=== PATIENT | female | born 1960 | race Caucasian/White ===

== ENCOUNTER 2021-04-12 11:10 | Inpatient (IN) | payer BC ==
[2021-04-12] MEDS ORDERED: Dexamethasone 10 MG/ML VIAL ONE (12:17)
[2021-04-12 12:34] LABS: #Basophils 0.1 thou/uL (0.0-0.2); #Lymphocytes 0.4 thou/uL (1.20-3.40); #Monocytes 0.5 thou/uL (0.11-0.59); #Neutrophils 8.4 thou/uL (1.40-6.50); %Basophils 1.6 % (0.0-1.0); %Eosinophils 0.3 % (0.0-10.0); %Monocytes 5.4 % (0.0-10.0); %Neutrophils 88.8 % (42.0-75.0); Hemoglobin 13.6 g/dL (12.0-16.0); Mean Corpuscular Hemoglobin 31.3 pg (27.0-31.0); Mean Corpuscular Volume 94.9 fL (78.0-98.0); Mean Platelet Volume 7.9 fL (7.4-10.4); Platelet Count 242 thou/uL (130-400); RBC Distribution Width 11.8 % (11.5-14.5); Red Blood Cell (RBC) Count 4.33 mill/uL (4.20-5.40); White Blood Cell (WBC) Count 9.5 thou/uL (4.8-10.8)
[2021-04-12 12:59] LABS: ALT (SGPT) 49 U/L (8-55); AST (SGOT) 60 U/L (5-34); Albumin 3.3 g/dL (3.5-5.0); Alkaline Phosphatase 43 U/L (40-110); Anion Gap 11 mmol/L (10-20); BUN (Urea Nitrogen) 21 mg/dL (9.8-20.1); Bilirubin, Total 0.5 mg/dL (0.2-1.2); Calc. Creatinine Clearance 0 mL/min (70-130); Calcium 8.9 mg/dL (7.8-10.44); Carbon Dioxide 23 mmol/L (22-29); Chloride 108 mmol/L (98-107); Glucose 115 mg/dL (70-105); Protein, Total 7.3 g/dL (6.0-8.3); Sodium 138 mmol/L (136-145)
[2021-04-12] MEDS ORDERED: Ondansetron PF 4 MG/2 ML Vial IVP PRN (14:35)
[2021-04-12] MEDS ORDERED: Ondansetron ODT 4 MG TAB PO PRN (14:35)
[2021-04-12] MEDS ORDERED: Guaifenesin DM 100-10/5 ML UDCUP PO PRN (14:35)
[2021-04-12] MEDS ORDERED: Acetaminophen 650 MG Suppository PR PRN (14:35)
[2021-04-12] MEDS ORDERED: Albuterol 200 PUFF (6.7GM INHALER) INH PRN (14:55)
[2021-04-12] MEDS ORDERED: Melatonin 3 MG TAB PO PRN (15:04)
[2021-04-12] MEDS ORDERED: Benzonatate 100 MG CAP PO PRN (15:04)
[2021-04-12 15:22] LABS: Troponin I 0.039 ng/mL (< 0.028)
[2021-04-12 18:45] LABS: Troponin I 0.044 ng/mL (< 0.028)
[2021-04-12] MEDS ORDERED: Sodium Chloride 0.9% 1,000 ML IV SCH (19:15)
[2021-04-12] MEDS ORDERED: Heparin 5,000 UNITS/ML VIAL SC SCH (19:30)
[2021-04-12] MEDS: Azithromycin 500 MG in Sodium Chloride 0.9% 250 ML 250 ML IVPB SCH (20:51)
[2021-04-12] MEDS: cefTRIAXone\\ROCEPHIN 1 GM in Sodium Chloride 0.9% 100 ML IVPB SCH (21:00)
[2021-04-12] MEDS ORDERED: REMDESIVIR 200 MG in Sodium Chloride 0.9% 250 ML 210 ML IV SCH (23:59)
[2021-04-13 06:11] LABS: #Lymphocytes 0.6 thou/uL (1.20-3.40); #Monocytes 0.5 thou/uL (0.11-0.59); %Basophils 0.1 % (0.0-1.0); %Eosinophils 0.2 % (0.0-10.0); %Lymphocytes 7.3 % (21.0-51.0); %Monocytes 5.7 % (0.0-10.0); %Neutrophils 86.8 % (42.0-75.0); Hemoglobin 13.8 g/dL (12.0-16.0); Mean Corpuscular HGB CONC 31.8 g/dL (32.0-36.0); Mean Corpuscular Hemoglobin 30.1 pg (27.0-31.0); Mean Corpuscular Volume 94.6 fL (78.0-98.0); Mean Platelet Volume 7.7 fL (7.4-10.4); Platelet Count 253 thou/uL (130-400); RBC Distribution Width 11.9 % (11.5-14.5); Red Blood Cell (RBC) Count 4.59 mill/uL (4.20-5.40); White Blood Cell (WBC) Count 8.1 thou/uL (4.8-10.8)
[2021-04-13 06:32] LABS: Anion Gap 15 mmol/L (10-20); BUN (Urea Nitrogen) 24 mg/dL (9.8-20.1); Calc. Creatinine Clearance 122 mL/min (70-130); Calcium 8.9 mg/dL (7.8-10.44); Carbon Dioxide 20 mmol/L (22-29); Chloride 110 mmol/L (98-107); Glucose 132 mg/dL (70-105); Potassium 4.4 mmol/L (3.5-5.1); Sodium 141 mmol/L (136-145)
[2021-04-13] MEDS: hydrALAZINE 20 MG/ML VIAL SLOW IVP PRN (08:38)
[2021-04-13] MEDS: Dexamethasone 10 MG/ML VIAL SLOW IVP SCH (08:39)
[2021-04-13] MEDS: Heparin 5,000 UNITS/ML VIAL SC SCH ×3 (08:39→19:51)
[2021-04-13] MEDS: REMDESIVIR 100 MG in Sodium Chloride 0.9% 250 ML 230 ML IV SCH (19:52)
[2021-04-13] MEDS: cefTRIAXone\\ROCEPHIN 1 GM in Sodium Chloride 0.9% 100 ML IVPB SCH (19:52)
[2021-04-13] MEDS: Azithromycin 500 MG in Sodium Chloride 0.9% 250 ML 250 ML IVPB SCH (21:03)
[2021-04-13] MEDS ORDERED: REMDESIVIR 100 MG in Sodium Chloride 0.9% 250 ML 230 ML IV SCH (22:00)
[2021-04-14 07:13] LABS: #Lymphocytes 0.8 thou/uL (1.20-3.40); #Monocytes 0.8 thou/uL (0.11-0.59); #Neutrophils 10.7 thou/uL (1.40-6.50); %Eosinophils 0.3 % (0.0-10.0); %Lymphocytes 6.5 % (21.0-51.0); %Monocytes 6.3 % (0.0-10.0); %Neutrophils 86.9 % (42.0-75.0); Mean Corpuscular HGB CONC 32.7 g/dL (32.0-36.0); Mean Corpuscular Hemoglobin 31.3 pg (27.0-31.0); Mean Corpuscular Volume 95.8 fL (78.0-98.0); Mean Platelet Volume 7.7 fL (7.4-10.4); Platelet Count 299 thou/uL (130-400); RBC Distribution Width 11.9 % (11.5-14.5); Red Blood Cell (RBC) Count 4.48 mill/uL (4.20-5.40); White Blood Cell (WBC) Count 12.3 thou/uL (4.8-10.8)
[2021-04-14 07:20] LABS: Anion Gap 12 mmol/L (10-20); BUN (Urea Nitrogen) 35 mg/dL (9.8-20.1); Calc. Creatinine Clearance 129 mL/min (70-130); Calcium 8.7 mg/dL (7.8-10.44); Carbon Dioxide 22 mmol/L (22-29); Chloride 112 mmol/L (98-107); Glucose 116 mg/dL (70-105); Magnesium 2.3 mg/dL (1.6-2.6); Sodium 142 mmol/L (136-145)
[2021-04-14] MEDS: FLUoxetine HCl 20 MG CAP PO SCH (08:46)
[2021-04-14] MEDS: Heparin 5,000 UNITS/ML VIAL SC SCH ×3 (08:46→21:10)
[2021-04-14] MEDS: Dexamethasone 10 MG/ML VIAL SLOW IVP SCH (08:47)
[2021-04-14] MEDS ORDERED: Melatonin 3 MG TAB PO PRN (17:05)
[2021-04-14] MEDS: hydrALAZINE 20 MG/ML VIAL SLOW IVP PRN ×2 (17:11→19:56)
[2021-04-14] MEDS: Azithromycin 500 MG in Sodium Chloride 0.9% 250 ML 250 ML IVPB SCH (20:07)
[2021-04-14] MEDS: cefTRIAXone\\ROCEPHIN 1 GM in Sodium Chloride 0.9% 100 ML IVPB SCH (21:10)
[2021-04-14] MEDS ORDERED: Lorazepam 2 MG/ML VIAL SLOW IVP SCH ×2 (21:15→23:15)
[2021-04-14 22:51] LABS: Base Excess (BEa) -2.9 mEq/L (-2.0 to +3.0); CO2 Tension 38.6 mmHg (35.0-45.0); Calcium, Ionized (arterial) 1.18 mmol/L (1.12-1.30); Hemoglobin (Hb) 15.4 g/dL (12.0-16.0); O2 Tension (PaO2), arterial 78.3 mmHg (> 80.0); Potassium - ABG Lab 3.99 mmol/L (3.70-5.30); Puncture Site RRA; pH, Arterial 7.37 (7.35-7.45)
[2021-04-14] MEDS ORDERED: Lorazepam 2 MG/ML VIAL ONE (22:58)
[2021-04-14] MEDS ORDERED: Metoprolol Tartrate 5 MG/5 ML VIAL ONE (23:03)
[2021-04-14] MEDS ORDERED: Enoxaparin Sodium 120 MG/0.8 ML SYRINGE SC SCH (23:45)
[2021-04-14] MEDS ORDERED: Enoxaparin Sodium 30 MG/0.3 ML SYRINGE SC SCH (23:45)
[2021-04-15] MEDS ORDERED: Propofol 1,000 MG/100 ML VIAL IV ONE (00:24)
[2021-04-15 00:44] LABS: Actual Bicarbonate (HCO3a) 21.4 mEq/L (22-28); Base Excess (BEa) -3.2 mEq/L (-2.0 to +3.0); CO2 Tension 37.5 mmHg (35.0-45.0); Calcium, Ionized (arterial) 1.16 mmol/L (1.12-1.30); Carboxyhemoglobin (COHb) 0.4 gm% (0.0-3.0); Hemoglobin (Hb) 15.3 g/dL (12.0-16.0); Potassium - ABG Lab 3.93 mmol/L (3.70-5.30); pH, Arterial 7.38 (7.35-7.45)
[2021-04-15] MEDS ORDERED: Electrolyte Replacement Protocol 1 EACH IVPB PRN (01:32)
[2021-04-15 01:41] LABS: O2 Tension (PaO2), arterial 55.2 mmHg (> 80.0); Puncture Site LRA
[2021-04-15 01:42] LABS: ALV-art Gradient 397.025 mmHg (0-20)
[2021-04-15] MEDS ORDERED: Lorazepam 2 MG/ML VIAL ONE (01:42)
[2021-04-15] MEDS ORDERED: Ventilator Sedation Protocol 1 EACH FS SCH (01:45)
[2021-04-15] MEDS ORDERED: Fentanyl BOLUS 250 ML IVPB PRN (02:00)
[2021-04-15] MEDS ORDERED: DISCONTINUE PREVIOUS NARCOTIC PAIN MEDICATIONS AND BENZODIAZEPINES FS SCH (02:00)
[2021-04-15] MEDS ORDERED: Propofol BOLUS 1,000 MG/100 ML VIAL IV PRN (02:00)
[2021-04-15] MEDS: Lorazepam 2 MG/ML VIAL SLOW IVP PRN (02:00)
[2021-04-15] MEDS ORDERED: Morphine 2 MG/ML VIAL SLOW IVP PRN (02:00)
[2021-04-15] MEDS ORDERED: Fentanyl CADD 100 ML ONE (02:03)
[2021-04-15] MEDS: Fentanyl CADD 100 ML IV SCH (02:07)
[2021-04-15] MEDS: REMDESIVIR 100 MG in Sodium Chloride 0.9% 250 ML 230 ML IV SCH ×2 (04:05→23:46)
[2021-04-15 04:28] LABS: Anion Gap 16 mmol/L (10-20); BUN (Urea Nitrogen) 30 mg/dL (9.8-20.1); CRP (Inflammatory) 5.92 mg/dL (= or < 0.5); Calc. Creatinine Clearance 126 mL/min (70-130); Calcium 8.4 mg/dL (7.8-10.44); Carbon Dioxide 19 mmol/L (22-29); Chloride 113 mmol/L (98-107); Glucose 149 mg/dL (70-105); Magnesium 2.3 mg/dL (1.6-2.6); Potassium 5.1 mmol/L (3.5-5.1); Sodium 143 mmol/L (136-145)
[2021-04-15] MEDS: Propofol 1,000 MG/100 ML VIAL IV PRN ×4 (05:08→22:57)
[2021-04-15] MEDS: Dexamethasone 10 MG/ML VIAL SLOW IVP SCH (09:05)
[2021-04-15] MEDS: Famotidine 20 MG TAB PO SCH ×2 (09:05→21:20)
[2021-04-15] MEDS: FLUoxetine HCl 20 MG CAP PO SCH (09:05)
[2021-04-15 10:12] LABS: Band 10 % (5-11); Hemoglobin 12.9 g/dL (12.0-16.0); Lymphocytes 7 % (21-51); MDiff Complete? YES; Mean Corpuscular HGB CONC 32.5 g/dL (32.0-36.0); Mean Corpuscular Hemoglobin 30.3 pg (27.0-31.0); Mean Corpuscular Volume 93.3 fL (78.0-98.0); Mean Platelet Volume 7.9 fL (7.4-10.4); Monocytes 3 % (0-10); Neutrophil 80 % (42-75); Platelet Count 286 thou/uL (130-400); RBC Distribution Width 11.9 % (11.5-14.5); Red Blood Cell (RBC) Count 4.25 mill/uL (4.20-5.40); White Blood Cell (WBC) Count 11.1 thou/uL (4.8-10.8)
[2021-04-15 13:27] LABS: Actual Bicarbonate (HCO3a) 20.7 mEq/L (22-28); Base Excess (BEa) -3.2 mEq/L (-2.0 to +3.0); CO2 Tension 33.8 mmHg (35.0-45.0); Carboxyhemoglobin (COHb) 0.2 gm% (0.0-3.0); Hemoglobin (Hb) 14.6 g/dL (12.0-16.0); Potassium - ABG Lab 4.01 mmol/L (3.70-5.30)
[2021-04-15 13:31] LABS: O2 Tension (PaO2), arterial 59.5 mmHg (> 80.0)
[2021-04-15 13:32] LABS: Puncture Site RRA
[2021-04-15] MEDS: Lactated Ringer's 1,000 ML IV SCH (14:56)
[2021-04-15] MEDS: Azithromycin 500 MG in Sodium Chloride 0.9% 250 ML 250 ML IVPB SCH (19:52)
[2021-04-15] MEDS ORDERED: Enoxaparin Sodium 40 MG/0.4 ML SYRINGE SC SCH (21:00)
[2021-04-15] MEDS: cefTRIAXone\\ROCEPHIN 1 GM in Sodium Chloride 0.9% 100 ML IVPB SCH (21:21)
[2021-04-16] MEDS ORDERED: Fentanyl CADD 100 ML ONE ×2 (00:56→20:43)
[2021-04-16 06:53] LABS: #Lymphocytes 0.6 thou/uL (1.20-3.40); #Monocytes 0.6 thou/uL (0.11-0.59); #Neutrophils 10.5 thou/uL (1.40-6.50); %Eosinophils 0.1 % (0.0-10.0); %Lymphocytes 5.4 % (21.0-51.0); %Monocytes 5.4 % (0.0-10.0); Hemoglobin 13.7 g/dL (12.0-16.0); Mean Corpuscular HGB CONC 32.6 g/dL (32.0-36.0); Mean Corpuscular Hemoglobin 30.9 pg (27.0-31.0); Mean Corpuscular Volume 94.8 fL (78.0-98.0); Mean Platelet Volume 8.2 fL (7.4-10.4); Platelet Count 313 thou/uL (130-400); Red Blood Cell (RBC) Count 4.43 mill/uL (4.20-5.40); White Blood Cell (WBC) Count 11.8 thou/uL (4.8-10.8)
[2021-04-16 07:15] LABS: Phosphorus 3.1 mg/dL (2.3-4.7)
[2021-04-16 07:16] LABS: ALT (SGPT) 51 U/L (8-55); AST (SGOT) 38 U/L (5-34); Alkaline Phosphatase 49 U/L (40-110); Anion Gap 14 mmol/L (10-20); BUN (Urea Nitrogen) 43 mg/dL (9.8-20.1); Bilirubin, Total 0.3 mg/dL (0.2-1.2); CRP (Inflammatory) 7.82 mg/dL (= or < 0.5); Calc. Creatinine Clearance 113 mL/min (70-130); Calcium 8.7 mg/dL (7.8-10.44); Carbon Dioxide 19 mmol/L (22-29); Chloride 114 mmol/L (98-107); Globulin 3.9 g/dL (2.4-3.5); Glucose 172 mg/dL (70-105); Magnesium 2.6 mg/dL (1.6-2.6); Potassium 4.2 mmol/L (3.5-5.1); Protein, Total 6.9 g/dL (6.0-8.3); Sodium 143 mmol/L (136-145)
[2021-04-16] MEDS: Famotidine 20 MG TAB PO SCH ×2 (09:23→20:57)
[2021-04-16] MEDS: FLUoxetine HCl 20 MG CAP PO SCH (09:23)
[2021-04-16] MEDS: Enoxaparin Sodium 40 MG/0.4 ML SYRINGE SC SCH (09:24)
[2021-04-16] MEDS: Dexamethasone 10 MG/ML VIAL SLOW IVP SCH (09:38)
[2021-04-16] MEDS: Lorazepam 2 MG/ML VIAL SLOW IVP PRN (10:11)
[2021-04-16] MEDS: Propofol 1,000 MG/100 ML VIAL IV PRN (19:49)
[2021-04-16] MEDS: Azithromycin 500 MG in Sodium Chloride 0.9% 250 ML 250 ML IVPB SCH (19:56)
[2021-04-16] MEDS: cefTRIAXone\\ROCEPHIN 1 GM in Sodium Chloride 0.9% 100 ML IVPB SCH (20:57)
[2021-04-17] MEDS: REMDESIVIR 100 MG in Sodium Chloride 0.9% 250 ML 230 ML IV SCH (00:04)
[2021-04-17 04:41] LABS: Magnesium 2.4 mg/dL (1.6-2.6)
[2021-04-17] MEDS: Propofol 1,000 MG/100 ML VIAL IV PRN ×3 (04:41→23:42)
[2021-04-17 05:01] LABS: #Eosinphils 0.1 thou/uL (0.0-0.7); #Lymphocytes 0.7 thou/uL (1.20-3.40); #Monocytes 0.6 thou/uL (0.11-0.59); #Neutrophils 9.8 thou/uL (1.40-6.50); %Basophils 0.4 % (0.0-1.0); %Eosinophils 0.6 % (0.0-10.0); %Monocytes 5.7 % (0.0-10.0); %Neutrophils 87.3 % (42.0-75.0); Mean Corpuscular HGB CONC 33.9 g/dL (32.0-36.0); Mean Corpuscular Hemoglobin 31.8 pg (27.0-31.0); Mean Corpuscular Volume 93.8 fL (78.0-98.0); Mean Platelet Volume 8.4 fL (7.4-10.4); Platelet Count 332 thou/uL (130-400); RBC Distribution Width 11.9 % (11.5-14.5); Red Blood Cell (RBC) Count 3.14 mill/uL (4.20-5.40); White Blood Cell (WBC) Count 11.2 thou/uL (4.8-10.8)
[2021-04-17] MEDS: Lactated Ringer's 1,000 ML IV SCH (07:42)
[2021-04-17] MEDS: FLUoxetine HCl 20 MG CAP PO SCH (08:14)
[2021-04-17] MEDS: Famotidine 20 MG TAB PO SCH ×2 (08:14→21:06)
[2021-04-17] MEDS: Enoxaparin Sodium 40 MG/0.4 ML SYRINGE SC SCH (08:14)
[2021-04-17] MEDS: Dexamethasone 10 MG/ML VIAL SLOW IVP SCH (08:43)
[2021-04-17] MEDS ORDERED: Fentanyl CADD 100 ML ONE (15:07)
[2021-04-17] MEDS: Fentanyl CADD 100 ML IV SCH (15:11)
[2021-04-17] MEDS: cefTRIAXone\\ROCEPHIN 1 GM in Sodium Chloride 0.9% 100 ML IVPB SCH (21:07)
[2021-04-18 04:42] LABS: Anion Gap 15 mmol/L (10-20); BUN (Urea Nitrogen) 39 mg/dL (9.8-20.1); Calc. Creatinine Clearance 148 mL/min (70-130); Calcium 8.6 mg/dL (7.8-10.44); Carbon Dioxide 17 mmol/L (22-29); Chloride 117 mmol/L (98-107); Glucose 190 mg/dL (70-105); Potassium 4.5 mmol/L (3.5-5.1); Sodium 144 mmol/L (136-145)
[2021-04-18 05:22] LABS: Hemoglobin 13.2 g/dL (12.0-16.0); Mean Corpuscular HGB CONC 33.1 g/dL (32.0-36.0); Mean Corpuscular Hemoglobin 31.5 pg (27.0-31.0); Mean Corpuscular Volume 94.9 fL (78.0-98.0); Mean Platelet Volume 8.7 fL (7.4-10.4); Platelet Count 247 thou/uL (130-400); RBC Distribution Width 12.1 % (11.5-14.5); Red Blood Cell (RBC) Count 4.19 mill/uL (4.20-5.40); White Blood Cell (WBC) Count 9.7 thou/uL (4.8-10.8)
[2021-04-18 05:48] LABS: Band 4 % (5-11); Lymphocytes 3 % (21-51); MDiff Complete? YES; Metamyelocyte 1 % (0-0); Monocytes 4 % (0-10); Myelocyte 1 % (0-0); Neutrophil 87 % (42-75)
[2021-04-18] MEDS: Lactated Ringer's 1,000 ML IV SCH (07:11)
[2021-04-18 07:56] LABS: Actual Bicarbonate (HCO3a) 21.7 mEq/L (22-28); Base Excess (BEa) -0.8 mEq/L (-2.0 to +3.0); CO2 Tension 29.8 mmHg (35.0-45.0); Calcium, Ionized (arterial) 1.18 mmol/L (1.12-1.30); Carboxyhemoglobin (COHb) 0.1 gm% (0.0-3.0); Hemoglobin (Hb) 13.2 g/dL (12.0-16.0); O2 Tension (PaO2), arterial 63.3 mmHg (> 80.0); Potassium - ABG Lab 4.59 mmol/L (3.70-5.30); pH, Arterial 7.48 (7.35-7.45)
[2021-04-18] MEDS: Enoxaparin Sodium 40 MG/0.4 ML SYRINGE SC SCH (08:19)
[2021-04-18] MEDS: Famotidine 20 MG TAB PO SCH ×2 (08:20→20:27)
[2021-04-18] MEDS: FLUoxetine HCl 20 MG CAP PO SCH (08:20)
[2021-04-18 08:31] LABS: Puncture Site RRA
[2021-04-18] MEDS ORDERED: Dexamethasone 4 mg/ml Vial SLOW IVP SCH (09:00)
[2021-04-18] MEDS: hydrALAZINE 20 MG/ML VIAL SLOW IVP PRN (16:33)
[2021-04-18] MEDS: Labetalol HCl 100 MG/20 ML VIAL SLOW IVP PRN (20:25)
[2021-04-18] MEDS: cefTRIAXone\\ROCEPHIN 1 GM in Sodium Chloride 0.9% 100 ML IVPB SCH (20:26)
[2021-04-19 04:00] LABS: #Eosinphils 0.2 thou/uL (0.0-0.7); #Lymphocytes 0.9 thou/uL (1.20-3.40); #Monocytes 0.8 thou/uL (0.11-0.59); #Neutrophils 12.1 thou/uL (1.40-6.50); %Eosinophils 1.3 % (0.0-10.0); %Lymphocytes 6.6 % (21.0-51.0); %Monocytes 5.9 % (0.0-10.0); %Neutrophils 86.2 % (42.0-75.0); Hemoglobin 13.7 g/dL (12.0-16.0); Mean Corpuscular HGB CONC 33.2 g/dL (32.0-36.0); Mean Corpuscular Hemoglobin 31.4 pg (27.0-31.0); Mean Corpuscular Volume 94.6 fL (78.0-98.0); Mean Platelet Volume 8.4 fL (7.4-10.4); Platelet Count 249 thou/uL (130-400); RBC Distribution Width 12.2 % (11.5-14.5); Red Blood Cell (RBC) Count 4.37 mill/uL (4.20-5.40)
[2021-04-19] MEDS: hydrALAZINE 20 MG/ML VIAL SLOW IVP PRN ×2 (05:47→22:08)
[2021-04-19] MEDS ORDERED: Polyethylene Glycol 3350 17 GM Packet PO SCH (06:00)
[2021-04-19] MEDS: Labetalol HCl 100 MG/20 ML VIAL SLOW IVP PRN (08:10)
[2021-04-19] MEDS: Famotidine 20 MG TAB PO SCH ×2 (08:11→21:33)
[2021-04-19] MEDS: Acetaminophen 325 MG TAB PO PRN (08:11)
[2021-04-19] MEDS: FLUoxetine HCl 20 MG CAP PO SCH (08:11)
[2021-04-19] MEDS: Enoxaparin Sodium 40 MG/0.4 ML SYRINGE SC SCH ×2 (08:11→21:32)
[2021-04-19] MEDS ORDERED: Amlodipine 5 MG TAB PO SCH (11:30)
[2021-04-19] MEDS: Amlodipine 5 MG TAB PO SCH (21:32)
[2021-04-19] MEDS ORDERED: traZODone HCl 50 MG TAB PO SCH (23:00)
[2021-04-20] MEDS ORDERED: Lorazepam 2 MG/ML VIAL ONE (00:08)
[2021-04-20] MEDS ORDERED: Lorazepam 2 MG/ML VIAL SLOW IVP SCH (00:15)
[2021-04-20] MEDS ORDERED: Fentanyl CADD 100 ML ONE (00:46)
[2021-04-20] MEDS ORDERED: Propofol 1,000 MG/100 ML VIAL IV ONE (00:46)
[2021-04-20] MEDS ORDERED: Propofol 1,000 MG/100 ML VIAL IV SCH (01:00)
[2021-04-20] MEDS ORDERED: Succinylcholine 200 MG/10 ml SYRINGE FS SCH (01:00)
[2021-04-20] MEDS ORDERED: Rocuronium Bromide 50 MG/5 ML VIAL IVP SCH (01:00)
[2021-04-20 01:30] LABS: Actual Bicarbonate (HCO3a) 24.4 mEq/L (22-28); CO2 Tension 43.3 mmHg (35.0-45.0); Calcium, Ionized (arterial) 1.21 mmol/L (1.12-1.30); Carboxyhemoglobin (COHb) 0.5 gm% (0.0-3.0); Hemoglobin (Hb) 14.7 g/dL (12.0-16.0); O2 Tension (PaO2), arterial 65.3 mmHg (> 80.0); Potassium - ABG Lab 4.11 mmol/L (3.70-5.30); pH, Arterial 7.37 (7.35-7.45)
[2021-04-20 01:31] LABS: Puncture Site LRA
[2021-04-20 01:32] LABS: ALV-art Gradient 593.575 mmHg (0-20)
[2021-04-20] MEDS ORDERED: Morphine 2 MG/ML VIAL SLOW IVP PRN (02:15)
[2021-04-20] MEDS ORDERED: DISCONTINUE PREVIOUS NARCOTIC PAIN MEDICATIONS AND BENZODIAZEPINES FS SCH (02:15)
[2021-04-20] MEDS ORDERED: Fentanyl BOLUS 250 ML IVPB PRN (02:15)
[2021-04-20] MEDS ORDERED: Propofol BOLUS 1,000 MG/100 ML VIAL IV PRN (02:15)
[2021-04-20 03:40] LABS: #Eosinphils 0.2 thou/uL (0.0-0.7); #Lymphocytes 0.9 thou/uL (1.20-3.40); #Monocytes 0.8 thou/uL (0.11-0.59); #Neutrophils 13.6 thou/uL (1.40-6.50); %Eosinophils 1.6 % (0.0-10.0); %Lymphocytes 5.6 % (21.0-51.0); %Neutrophils 87.8 % (42.0-75.0); Hemoglobin 12.8 g/dL (12.0-16.0); Mean Corpuscular HGB CONC 31.9 g/dL (32.0-36.0); Mean Corpuscular Hemoglobin 30.4 pg (27.0-31.0); Mean Corpuscular Volume 95.3 fL (78.0-98.0); Mean Platelet Volume 8.5 fL (7.4-10.4); Platelet Count 198 thou/uL (130-400); RBC Distribution Width 12.2 % (11.5-14.5); Red Blood Cell (RBC) Count 4.22 mill/uL (4.20-5.40); White Blood Cell (WBC) Count 15.5 thou/uL (4.8-10.8)
[2021-04-20 03:58] LABS: Anion Gap 12 mmol/L (10-20); BUN (Urea Nitrogen) 29 mg/dL (9.8-20.1); Calc. Creatinine Clearance 132 mL/min (70-130); Calcium 8.7 mg/dL (7.8-10.44); Carbon Dioxide 23 mmol/L (22-29); Chloride 112 mmol/L (98-107); Glucose 127 mg/dL (70-105); Potassium 4.3 mmol/L (3.5-5.1); Sodium 143 mmol/L (136-145)
[2021-04-20] MEDS: Enoxaparin Sodium 40 MG/0.4 ML SYRINGE SC SCH ×2 (07:55→20:11)
[2021-04-20] MEDS: Famotidine/PF 20 mg/2ml Vial SLOW IVP SCH ×2 (10:21→20:10)
[2021-04-20] MEDS ORDERED: Doxycycline 100 MG CAP PO SCH (10:45)
[2021-04-20] MEDS ORDERED: Furosemide 20 MG/2 ML VIAL SLOW IVP SCH (11:00)
[2021-04-20] MEDS: FLUoxetine HCl 20 MG CAP PO SCH (11:32)
[2021-04-20] MEDS: Amlodipine 5 MG TAB PO SCH ×2 (11:32→20:12)
[2021-04-20] MEDS: Polyethylene Glycol 3350 17 GM Packet PO SCH (11:33)
[2021-04-20] MEDS: Fentanyl CADD 100 ML IV SCH (17:21)
[2021-04-20] MEDS: Lorazepam 2 MG/ML VIAL SLOW IVP PRN (20:10)
[2021-04-20] MEDS: Doxycycline 100 MG CAP PO SCH (20:18)
[2021-04-21 04:49] LABS: #Eosinphils 0.4 thou/uL (0.0-0.7); #Lymphocytes 0.9 thou/uL (1.20-3.40); #Monocytes 0.4 thou/uL (0.11-0.59); #Neutrophils 10.6 thou/uL (1.40-6.50); %Basophils 0.3 % (0.0-1.0); %Lymphocytes 7.2 % (21.0-51.0); %Monocytes 3.6 % (0.0-10.0); Hemoglobin 12.5 g/dL (12.0-16.0); Mean Corpuscular HGB CONC 32.7 g/dL (32.0-36.0); Mean Corpuscular Hemoglobin 31.5 pg (27.0-31.0); Mean Corpuscular Volume 96.5 fL (78.0-98.0); Mean Platelet Volume 9.1 fL (7.4-10.4); Platelet Count 159 thou/uL (130-400); RBC Distribution Width 12.2 % (11.5-14.5); Red Blood Cell (RBC) Count 3.97 mill/uL (4.20-5.40); White Blood Cell (WBC) Count 12.4 thou/uL (4.8-10.8)
[2021-04-21 05:10] LABS: ALT (SGPT) 40 U/L (8-55); AST (SGOT) 39 U/L (5-34); Albumin 2.7 g/dL (3.5-5.0); Alkaline Phosphatase 45 U/L (40-110); Anion Gap 12 mmol/L (10-20); BUN (Urea Nitrogen) 43 mg/dL (9.8-20.1); Bilirubin, Total 0.6 mg/dL (0.2-1.2); Calc. Creatinine Clearance 103 mL/min (70-130); Carbon Dioxide 25 mmol/L (22-29); Chloride 113 mmol/L (98-107); Globulin 3.8 g/dL (2.4-3.5); Glucose 127 mg/dL (70-105); Potassium 4.6 mmol/L (3.5-5.1); Protein, Total 6.5 g/dL (6.0-8.3); Sodium 145 mmol/L (136-145)
[2021-04-21] MEDS ORDERED: Fentanyl CADD 100 ML ONE ×2 (05:44→17:16)
[2021-04-21] MEDS: Fentanyl CADD 100 ML IV SCH (05:46)
[2021-04-21 07:25] LABS: Actual Bicarbonate (HCO3a) 23.7 mEq/L (22-28); Base Excess (BEa) -1.1 mEq/L (-2.0 to +3.0); CO2 Tension 39.9 mmHg (35.0-45.0); Carboxyhemoglobin (COHb) 0.3 gm% (0.0-3.0); Hemoglobin (Hb) 13.3 g/dL (12.0-16.0); O2 Tension (PaO2), arterial 61.2 mmHg (> 80.0); Potassium - ABG Lab 4.51 mmol/L (3.70-5.30); pH, Arterial 7.39 (7.35-7.45)
[2021-04-21 07:28] LABS: ALV-art Gradient 388.025 mmHg (0-20); Puncture Site RRA
[2021-04-21] MEDS: Amlodipine 5 MG TAB PO SCH ×2 (08:43→21:46)
[2021-04-21] MEDS: FLUoxetine HCl 20 MG CAP PO SCH (08:44)
[2021-04-21] MEDS: Doxycycline 100 MG CAP PO SCH ×2 (08:44→21:45)
[2021-04-21] MEDS: Famotidine/PF 20 mg/2ml Vial SLOW IVP SCH ×2 (08:44→21:46)
[2021-04-21] MEDS: Enoxaparin Sodium 40 MG/0.4 ML SYRINGE SC SCH ×2 (08:44→21:45)
[2021-04-21] MEDS: Polyethylene Glycol 3350 17 GM Packet PO SCH (08:45)
[2021-04-21] MEDS: Lorazepam 2 MG/ML VIAL SLOW IVP PRN ×3 (08:45→12:55)
[2021-04-21] MEDS ORDERED: Furosemide 20 MG/2 ML VIAL SLOW IVP SCH (09:00)
[2021-04-21] MEDS ORDERED: Dexamethasone 10 MG/ML VIAL SLOW IVP SCH (10:30)
[2021-04-21] MEDS ORDERED: Vecuronium 10 MG VIAL IV PRN ×2 (12:49→13:14)
[2021-04-21] MEDS ORDERED: Vecuronium 10 MG VIAL IV SCH (13:00)
[2021-04-21] MEDS: Senokot S 8.6-50 MG TAB PO SCH (21:45)
[2021-04-21] MEDS: Dexamethasone 10 MG/ML VIAL SLOW IVP SCH (21:47)
[2021-04-22 03:58] LABS: #Basophils 0.1 thou/uL (0.0-0.2); #Lymphocytes 0.3 thou/uL (1.20-3.40); #Monocytes 0.2 thou/uL (0.11-0.59); #Neutrophils 10.6 thou/uL (1.40-6.50); %Basophils 0.6 % (0.0-1.0); %Eosinophils 0.2 % (0.0-10.0); %Lymphocytes 3.1 % (21.0-51.0); %Monocytes 1.9 % (0.0-10.0); %Neutrophils 94.3 % (42.0-75.0); Hemoglobin 12.9 g/dL (12.0-16.0); Mean Corpuscular HGB CONC 33.1 g/dL (32.0-36.0); Mean Corpuscular Hemoglobin 32.2 pg (27.0-31.0); Mean Corpuscular Volume 97.1 fL (78.0-98.0); Mean Platelet Volume 9.7 fL (7.4-10.4); Platelet Count 151 thou/uL (130-400); RBC Distribution Width 12.3 % (11.5-14.5); Red Blood Cell (RBC) Count 4.01 mill/uL (4.20-5.40); White Blood Cell (WBC) Count 11.2 thou/uL (4.8-10.8)
[2021-04-22 04:21] LABS: ALT (SGPT) 49 U/L (8-55); AST (SGOT) 54 U/L (5-34); Albumin 2.9 g/dL (3.5-5.0); Alkaline Phosphatase 54 U/L (40-110); Anion Gap 12 mmol/L (10-20); BUN (Urea Nitrogen) 54 mg/dL (9.8-20.1); Bilirubin, Total 0.5 mg/dL (0.2-1.2); Calc. Creatinine Clearance 104 mL/min (70-130); Calcium 9.3 mg/dL (7.8-10.44); Carbon Dioxide 26 mmol/L (22-29); Chloride 116 mmol/L (98-107); Globulin 4.1 g/dL (2.4-3.5); Glucose 160 mg/dL (70-105); Potassium 5.1 mmol/L (3.5-5.1); Sodium 149 mmol/L (136-145)
[2021-04-22] MEDS: Acetaminophen 325 MG TAB PO PRN (04:21)
[2021-04-22] MEDS ORDERED: Fentanyl CADD 100 ML ONE ×2 (06:10→17:39)
[2021-04-22] MEDS: Lorazepam 2 MG/ML VIAL SLOW IVP PRN ×4 (06:12→21:57)
[2021-04-22] MEDS: Fentanyl CADD 100 ML IV SCH (06:15)
[2021-04-22] MEDS: Doxycycline 100 MG CAP PO SCH ×2 (07:59→19:23)
[2021-04-22] MEDS: FLUoxetine HCl 20 MG CAP PO SCH (07:59)
[2021-04-22] MEDS: Amlodipine 5 MG TAB PO SCH ×2 (07:59→19:23)
[2021-04-22] MEDS: Famotidine/PF 20 mg/2ml Vial SLOW IVP SCH ×2 (07:59→19:24)
[2021-04-22] MEDS: Enoxaparin Sodium 40 MG/0.4 ML SYRINGE SC SCH ×2 (07:59→19:24)
[2021-04-22] MEDS: Senokot S 8.6-50 MG TAB PO SCH ×2 (07:59→19:23)
[2021-04-22] MEDS: Polyethylene Glycol 3350 17 GM Packet PO SCH (07:59)
[2021-04-22] MEDS: Dexamethasone 10 MG/ML VIAL SLOW IVP SCH ×3 (08:00→21:27)
[2021-04-22] MEDS ORDERED: Fluconazole In NaCl,Iso-Osm 200 MG in Premix Bag 1 BAG IVPB SCH (17:30)
[2021-04-23] MEDS: Lorazepam 2 MG/ML VIAL SLOW IVP PRN ×3 (04:52→23:37)
[2021-04-23 05:15] LABS: #Lymphocytes 0.6 thou/uL (1.20-3.40); #Monocytes 0.3 thou/uL (0.11-0.59); #Neutrophils 9.7 thou/uL (1.40-6.50); %Eosinophils 0.1 % (0.0-10.0); %Neutrophils 90.9 % (42.0-75.0); Mean Corpuscular HGB CONC 31.1 g/dL (32.0-36.0); Mean Corpuscular Hemoglobin 30.3 pg (27.0-31.0); Mean Corpuscular Volume 97.2 fL (78.0-98.0); Mean Platelet Volume 10.2 fL (7.4-10.4); Platelet Count 190 thou/uL (130-400); RBC Distribution Width 12.2 % (11.5-14.5); Red Blood Cell (RBC) Count 4.29 mill/uL (4.20-5.40); White Blood Cell (WBC) Count 10.7 thou/uL (4.8-10.8)
[2021-04-23 05:39] LABS: ALT (SGPT) 66 U/L (8-55); AST (SGOT) 90 U/L (5-34); Alkaline Phosphatase 51 U/L (40-110); Anion Gap 15 mmol/L (10-20); BUN (Urea Nitrogen) 61 mg/dL (9.8-20.1); Bilirubin, Total 0.5 mg/dL (0.2-1.2); Calc. Creatinine Clearance 97 mL/min (70-130); Calcium 9.2 mg/dL (7.8-10.44); Carbon Dioxide 23 mmol/L (22-29); Chloride 120 mmol/L (98-107); Globulin 4.1 g/dL (2.4-3.5); Glucose 195 mg/dL (70-105); Protein, Total 7.1 g/dL (6.0-8.3); Sodium 153 mmol/L (136-145)
[2021-04-23] MEDS ORDERED: Fentanyl CADD 0 ML ONE (08:03)
[2021-04-23] MEDS ORDERED: Fentanyl CADD 100 ML ONE ×2 (08:03→23:31)
[2021-04-23] MEDS: Famotidine/PF 20 mg/2ml Vial SLOW IVP SCH ×2 (08:06→19:34)
[2021-04-23] MEDS: Dexamethasone 10 MG/ML VIAL SLOW IVP SCH ×2 (08:07→19:38)
[2021-04-23] MEDS: FLUoxetine HCl 20 MG CAP PO SCH (08:08)
[2021-04-23] MEDS: Amlodipine 5 MG TAB PO SCH ×2 (08:08→19:34)
[2021-04-23] MEDS: Senokot S 8.6-50 MG TAB PO SCH ×2 (08:08→19:34)
[2021-04-23] MEDS: Enoxaparin Sodium 40 MG/0.4 ML SYRINGE SC SCH ×2 (08:08→19:34)
[2021-04-23] MEDS: Polyethylene Glycol 3350 17 GM Packet PO SCH (08:08)
[2021-04-23] MEDS: Doxycycline 100 MG CAP PO SCH ×2 (08:08→19:33)
[2021-04-23] MEDS: Fluconazole In NaCl,Iso-Osm 200 MG in Premix Bag 1 BAG IVPB SCH (09:05)
[2021-04-23] MEDS ORDERED: Dextrose 5% in Water 1,000 ML IV SCH (14:45)
[2021-04-23 16:16] LABS: Anion Gap 15 mmol/L (10-20); BUN (Urea Nitrogen) 70 mg/dL (9.8-20.1); Calc. Creatinine Clearance 0 mL/min (70-130); Calcium 9.1 mg/dL (7.8-10.44); Carbon Dioxide 22 mmol/L (22-29); Chloride 121 mmol/L (98-107); Glucose 175 mg/dL (70-105); Potassium 5.2 mmol/L (3.5-5.1); Sodium 153 mmol/L (136-145)
[2021-04-23] MEDS: Fentanyl CADD 100 ML IV SCH (23:34)
[2021-04-24 04:30] LABS: Anion Gap 14 mmol/L (10-20); BUN (Urea Nitrogen) 69 mg/dL (9.8-20.1); Calc. Creatinine Clearance 95 mL/min (70-130); Calcium 9.1 mg/dL (7.8-10.44); Carbon Dioxide 24 mmol/L (22-29); Chloride 119 mmol/L (98-107); Glucose 209 mg/dL (70-105); Potassium 5.3 mmol/L (3.5-5.1); Sodium 152 mmol/L (136-145)
[2021-04-24] MEDS: Amlodipine 5 MG TAB PO SCH ×2 (08:39→23:31)
[2021-04-24] MEDS: FLUoxetine HCl 20 MG CAP PO SCH (08:40)
[2021-04-24] MEDS: Doxycycline 100 MG CAP PO SCH ×2 (08:40→20:22)
[2021-04-24] MEDS: Enoxaparin Sodium 40 MG/0.4 ML SYRINGE SC SCH ×2 (08:40→20:05)
[2021-04-24] MEDS: Fluconazole In NaCl,Iso-Osm 200 MG in Premix Bag 1 BAG IVPB SCH (08:40)
[2021-04-24] MEDS: Famotidine/PF 20 mg/2ml Vial SLOW IVP SCH ×2 (08:40→20:05)
[2021-04-24] MEDS: Dexamethasone 10 MG/ML VIAL SLOW IVP SCH ×2 (08:40→20:06)
[2021-04-24] MEDS: Senokot S 8.6-50 MG TAB PO SCH ×2 (08:41→20:05)
[2021-04-24] MEDS: Polyethylene Glycol 3350 17 GM Packet PO SCH (08:41)
[2021-04-24] MEDS ORDERED: Lantus 1000 UNITS/10 ML VIAL SC SCH (10:00)
[2021-04-24] MEDS ORDERED: Dextrose 5% in Water 1,000 ML IV PRN (11:00)
[2021-04-24] MEDS ORDERED: Dextrose 50% Abboject 50 ML SYRINGE IVP PRN (11:00)
[2021-04-24] MEDS: Lorazepam 2 MG/ML VIAL SLOW IVP PRN (11:38)
[2021-04-24] MEDS: Insulin Regular 300 UNITS/3 ML VIAL SC PRN ×2 (11:51→19:27)
[2021-04-24] MEDS ORDERED: Fentanyl CADD 100 ML ONE (12:08)
[2021-04-24] MEDS: Fentanyl CADD 100 ML IV SCH (12:17)
[2021-04-24] MEDS: Propofol 1,000 MG/100 ML VIAL IV PRN ×3 (12:25→20:50)
[2021-04-24 15:13] LABS: Anion Gap 13 mmol/L (10-20); BUN (Urea Nitrogen) 76 mg/dL (9.8-20.1); Calc. Creatinine Clearance 106 mL/min (70-130); Calcium 9.1 mg/dL (7.8-10.44); Carbon Dioxide 22 mmol/L (22-29); Chloride 121 mmol/L (98-107); Glucose 166 mg/dL (70-105); Potassium 5.1 mmol/L (3.5-5.1); Sodium 151 mmol/L (136-145)
[2021-04-24] MEDS: Dextrose 5% in Water 1,000 ML IV SCH (15:16)
[2021-04-25] MEDS: Insulin Regular 300 UNITS/3 ML VIAL SC PRN ×4 (00:51→18:30)
[2021-04-25] MEDS: Propofol 1,000 MG/100 ML VIAL IV PRN ×4 (03:48→19:35)
[2021-04-25] MEDS ORDERED: Fentanyl CADD 100 ML ONE ×2 (04:00→19:12)
[2021-04-25 05:56] LABS: ALT (SGPT) 101 U/L (8-55); AST (SGOT) 77 U/L (5-34); Albumin 2.9 g/dL (3.5-5.0); Alkaline Phosphatase 53 U/L (40-110); Anion Gap 13 mmol/L (10-20); BUN (Urea Nitrogen) 83 mg/dL (9.8-20.1); Bilirubin, Total 0.7 mg/dL (0.2-1.2); Calc. Creatinine Clearance 107 mL/min (70-130); Calcium 9.1 mg/dL (7.8-10.44); Carbon Dioxide 23 mmol/L (22-29); Chloride 117 mmol/L (98-107); Globulin 3.8 g/dL (2.4-3.5); Glucose 183 mg/dL (70-105); Potassium 4.9 mmol/L (3.5-5.1); Protein, Total 6.7 g/dL (6.0-8.3); Sodium 148 mmol/L (136-145)
[2021-04-25] MEDS: Dexamethasone 10 MG/ML VIAL SLOW IVP SCH ×2 (09:00→19:35)
[2021-04-25] MEDS: Amlodipine 5 MG TAB PO SCH ×2 (09:00→19:34)
[2021-04-25] MEDS: Enoxaparin Sodium 40 MG/0.4 ML SYRINGE SC SCH ×2 (09:01→19:35)
[2021-04-25] MEDS: Fluconazole In NaCl,Iso-Osm 200 MG in Premix Bag 1 BAG IVPB SCH (09:01)
[2021-04-25] MEDS: Doxycycline 100 MG CAP PO SCH ×2 (09:01→19:35)
[2021-04-25] MEDS: Senokot S 8.6-50 MG TAB PO SCH ×2 (09:01→19:34)
[2021-04-25] MEDS: FLUoxetine HCl 20 MG CAP PO SCH (09:01)
[2021-04-25] MEDS: Famotidine/PF 20 mg/2ml Vial SLOW IVP SCH (09:01)
[2021-04-25] MEDS: Polyethylene Glycol 3350 17 GM Packet PO SCH (09:01)
[2021-04-25] MEDS: Lantus 1000 UNITS/10 ML VIAL SC SCH (09:02)
[2021-04-25] MEDS: Fentanyl CADD 100 ML IV SCH (19:24)
[2021-04-25] MEDS: Famotidine 20 MG TAB PO SCH (19:35)
[2021-04-26] MEDS: Propofol 1,000 MG/100 ML VIAL IV PRN ×2 (02:47→09:42)
[2021-04-26 04:36] LABS: ALT (SGPT) 147 U/L (8-55); AST (SGOT) 84 U/L (5-34); Albumin 3.1 g/dL (3.5-5.0); Alkaline Phosphatase 56 U/L (40-110); Anion Gap 16 mmol/L (10-20); BUN (Urea Nitrogen) 79 mg/dL (9.8-20.1); Bilirubin, Total 0.9 mg/dL (0.2-1.2); Calc. Creatinine Clearance 109 mL/min (70-130); Calcium 9.7 mg/dL (7.8-10.44); Carbon Dioxide 22 mmol/L (22-29); Chloride 117 mmol/L (98-107); Globulin 3.8 g/dL (2.4-3.5); Glucose 235 mg/dL (70-105); Potassium 4.8 mmol/L (3.5-5.1); Protein, Total 6.9 g/dL (6.0-8.3); Sodium 150 mmol/L (136-145)
[2021-04-26] MEDS: Insulin Regular 300 UNITS/3 ML VIAL SC PRN ×4 (04:42→22:36)
[2021-04-26 08:07] LABS: Actual Bicarbonate (HCO3a) 23.4 mEq/L (22-28); CO2 Tension 42.3 mmHg (35.0-45.0); O2 Tension (PaO2), arterial 65.8 mmHg (> 80.0); pH, Arterial 7.36 (7.35-7.45)
[2021-04-26 08:08] LABS: Base Excess (BEa) -2.1 mEq/L (-2.0 to +3.0); Calcium, Ionized (arterial) 1.25 mmol/L (1.12-1.30); Carboxyhemoglobin (COHb) 0.3 gm% (0.0-3.0); Hemoglobin (Hb) 14.7 g/dL (12.0-16.0); Potassium - ABG Lab 4.89 mmol/L (3.70-5.30); Puncture Site RRA
[2021-04-26 08:09] LABS: ALV-art Gradient 166.525 mmHg (0-20)
[2021-04-26] MEDS: Amlodipine 5 MG TAB PO SCH ×2 (08:18→21:37)
[2021-04-26] MEDS: Dexamethasone 10 MG/ML VIAL SLOW IVP SCH (08:18)
[2021-04-26] MEDS: Doxycycline 100 MG CAP PO SCH ×2 (08:18→21:47)
[2021-04-26] MEDS: Senokot S 8.6-50 MG TAB PO SCH ×2 (08:19→21:35)
[2021-04-26] MEDS: Polyethylene Glycol 3350 17 GM Packet PO SCH (08:19)
[2021-04-26] MEDS: Famotidine 20 MG TAB PO SCH ×2 (08:19→21:34)
[2021-04-26] MEDS: FLUoxetine HCl 20 MG CAP PO SCH (08:19)
[2021-04-26] MEDS: Enoxaparin Sodium 40 MG/0.4 ML SYRINGE SC SCH ×2 (08:19→21:31)
[2021-04-26] MEDS: Lantus 1000 UNITS/10 ML VIAL SC SCH (08:26)
[2021-04-26] MEDS ORDERED: Fentanyl CADD 100 ML ONE (09:26)
[2021-04-26 09:37] LABS: Actual Bicarbonate (HCO3a) 23.6 mEq/L (22-28); Base Excess (BEa) -2.7 mEq/L (-2.0 to +3.0); CO2 Tension 46.7 mmHg (35.0-45.0); Hemoglobin (Hb) 13.5 g/dL (12.0-16.0); O2 Tension (PaO2), arterial 67.4 mmHg (> 80.0); pH, Arterial 7.32 (7.35-7.45)
[2021-04-26 09:38] LABS: Calcium, Ionized (arterial) 1.21 mmol/L (1.12-1.30); Carboxyhemoglobin (COHb) 0.4 gm% (0.0-3.0); Potassium - ABG Lab 4.98 mmol/L (3.70-5.30)
[2021-04-26 09:40] LABS: ALV-art Gradient 195.075 mmHg (0-20)
[2021-04-27] MEDS: Diltiazem 125 MG in Sodium Chloride 0.9% 100 ML IVPB SCH ×3 (02:25→18:05)
[2021-04-27 02:30] LABS: #Lymphocytes 0.9 thou/uL (1.20-3.40); #Monocytes 1.1 thou/uL (0.11-0.59); #Neutrophils 12.5 thou/uL (1.40-6.50); %Basophils 0.2 % (0.0-1.0); %Lymphocytes 6.3 % (21.0-51.0); %Monocytes 7.3 % (0.0-10.0); %Neutrophils 86.2 % (42.0-75.0); Hemoglobin 14.4 g/dL (12.0-16.0); Mean Corpuscular HGB CONC 33.4 g/dL (32.0-36.0); Mean Corpuscular Volume 95.9 fL (78.0-98.0); Mean Platelet Volume 10.2 fL (7.4-10.4); Platelet Count 185 thou/uL (130-400); RBC Distribution Width 12.2 % (11.5-14.5); Red Blood Cell (RBC) Count 4.51 mill/uL (4.20-5.40); White Blood Cell (WBC) Count 14.4 thou/uL (4.8-10.8)
[2021-04-27 02:48] LABS: ALT (SGPT) 151 U/L (8-55); AST (SGOT) 74 U/L (5-34); Albumin 3.2 g/dL (3.5-5.0); Alkaline Phosphatase 59 U/L (40-110); Anion Gap 14 mmol/L (10-20); BUN (Urea Nitrogen) 72 mg/dL (9.8-20.1); Bilirubin, Total 0.7 mg/dL (0.2-1.2); Calc. Creatinine Clearance 121 mL/min (70-130); Calcium 9.8 mg/dL (7.8-10.44); Carbon Dioxide 23 mmol/L (22-29); Chloride 118 mmol/L (98-107); Glucose 179 mg/dL (70-105); Magnesium 2.7 mg/dL (1.6-2.6); Potassium 5.1 mmol/L (3.5-5.1); Protein, Total 7.2 g/dL (6.0-8.3); Sodium 150 mmol/L (136-145)
[2021-04-27 02:51] LABS: Troponin I 0.015 ng/mL (< 0.028)
[2021-04-27] MEDS ORDERED: Metoprolol Tartrate 5 MG/5 ML VIAL IVP SCH (03:00)
[2021-04-27 07:02] LABS: Actual Bicarbonate (HCO3a) 23.5 mEq/L (22-28); Base Excess (BEa) -1.3 mEq/L (-2.0 to +3.0); CO2 Tension 39.9 mmHg (35.0-45.0); Calcium, Ionized (arterial) 1.29 mmol/L (1.12-1.30); Carboxyhemoglobin (COHb) 0.3 gm% (0.0-3.0); Hemoglobin (Hb) 14.2 g/dL (12.0-16.0); O2 Tension (PaO2), arterial 63.5 mmHg (> 80.0); pH, Arterial 7.39 (7.35-7.45)
[2021-04-27 07:04] LABS: Puncture Site RRA
[2021-04-27 07:05] LABS: ALV-art Gradient 136.175 mmHg (0-20)
[2021-04-27 07:53] LABS: Troponin I 0.024 ng/mL (< 0.028)
[2021-04-27] MEDS: Famotidine 20 MG TAB PO SCH ×2 (08:33→20:58)
[2021-04-27] MEDS: Lantus 1000 UNITS/10 ML VIAL SC SCH (08:33)
[2021-04-27] MEDS: Amlodipine 5 MG TAB PO SCH ×2 (08:33→20:58)
[2021-04-27] MEDS: Dexamethasone 10 MG/ML VIAL SLOW IVP SCH (08:33)
[2021-04-27] MEDS: Enoxaparin Sodium 40 MG/0.4 ML SYRINGE SC SCH ×2 (08:33→20:58)
[2021-04-27] MEDS: FLUoxetine HCl 20 MG CAP PO SCH (08:33)
[2021-04-27] MEDS: Polyethylene Glycol 3350 17 GM Packet PO SCH (08:34)
[2021-04-27] MEDS: Senokot S 8.6-50 MG TAB PO SCH ×2 (08:34→20:58)
[2021-04-27] MEDS: Insulin Regular 300 UNITS/3 ML VIAL SC PRN ×3 (10:02→21:32)
[2021-04-27] MEDS ORDERED: Iopamidol 370 76% 100 ML VIAL ONE (10:08)
[2021-04-27] MEDS: Propofol 1,000 MG/100 ML VIAL IV PRN (10:52)
[2021-04-27] MEDS: Lorazepam 2 MG/ML VIAL SLOW IVP PRN (10:56)
[2021-04-27] MEDS ORDERED: Fentanyl CADD 100 ML ONE (12:43)
[2021-04-28] MEDS: Insulin Regular 300 UNITS/3 ML VIAL SC PRN ×4 (05:21→23:52)
[2021-04-28 06:08] LABS: ALT (SGPT) 154 U/L (8-55); AST (SGOT) 63 U/L (5-34); Albumin 2.8 g/dL (3.5-5.0); Alkaline Phosphatase 48 U/L (40-110); Anion Gap 14 mmol/L (10-20); BUN (Urea Nitrogen) 70 mg/dL (9.8-20.1); Bilirubin, Total 0.5 mg/dL (0.2-1.2); Calc. Creatinine Clearance 120 mL/min (70-130); Calcium 9.5 mg/dL (7.8-10.44); Carbon Dioxide 19 mmol/L (22-29); Chloride 124 mmol/L (98-107); Globulin 3.6 g/dL (2.4-3.5); Glucose 161 mg/dL (70-105); Potassium 5.4 mmol/L (3.5-5.1); Protein, Total 6.4 g/dL (6.0-8.3); Sodium 152 mmol/L (136-145)
[2021-04-28 06:58] LABS: #Lymphocytes 0.4 thou/uL (1.20-3.40); #Monocytes 0.5 thou/uL (0.11-0.59); #Neutrophils 9.6 thou/uL (1.40-6.50); %Basophils 0.2 % (0.0-1.0); %Eosinophils 0.4 % (0.0-10.0); %Lymphocytes 3.9 % (21.0-51.0); %Monocytes 5.1 % (0.0-10.0); %Neutrophils 90.5 % (42.0-75.0); Hemoglobin 13.8 g/dL (12.0-16.0); MDiff Complete? YES; Mean Corpuscular HGB CONC 31.7 g/dL (32.0-36.0); Mean Corpuscular Hemoglobin 30.2 pg (27.0-31.0); Mean Corpuscular Volume 95.4 fL (78.0-98.0); Mean Platelet Volume 10.8 fL (7.4-10.4); Platelet Clumps MODERATE; Platelet Count 119 thou/uL (130-400); Platelet Morphology Comment PLT clumps seen-LOW; RBC Distribution Width 12.5 % (11.5-14.5); Red Blood Cell (RBC) Count 4.55 mill/uL (4.20-5.40); White Blood Cell (WBC) Count 10.6 thou/uL (4.8-10.8)
[2021-04-28] MEDS: Enoxaparin Sodium 40 MG/0.4 ML SYRINGE SC SCH ×2 (09:58→20:30)
[2021-04-28] MEDS: Amlodipine 5 MG TAB PO SCH (09:58)
[2021-04-28] MEDS: Dexamethasone 10 MG/ML VIAL SLOW IVP SCH (09:59)
[2021-04-28] MEDS: Famotidine 20 MG TAB PO SCH ×2 (09:59→20:31)
[2021-04-28] MEDS: FLUoxetine HCl 20 MG CAP PO SCH (09:59)
[2021-04-28] MEDS: Polyethylene Glycol 3350 17 GM Packet PO SCH (09:59)
[2021-04-28] MEDS: Lantus 1000 UNITS/10 ML VIAL SC SCH (09:59)
[2021-04-28] MEDS: Senokot S 8.6-50 MG TAB PO SCH ×2 (09:59→20:31)
[2021-04-28] MEDS ORDERED: Fentanyl CADD 100 ML ONE (12:55)
[2021-04-28] MEDS: Amiodarone 450 MG in Dextrose 5% in Water 250 ML IVPB SCH (20:30)
[2021-04-29] MEDS: Amiodarone 450 MG in Dextrose 5% in Water 250 ML IVPB SCH (03:05)
[2021-04-29 04:13] LABS: #Lymphocytes 0.5 thou/uL (1.20-3.40); #Monocytes 0.4 thou/uL (0.11-0.59); #Neutrophils 10.4 thou/uL (1.40-6.50); %Basophils 0.1 % (0.0-1.0); %Eosinophils 0.2 % (0.0-10.0); %Lymphocytes 4.4 % (21.0-51.0); %Monocytes 3.3 % (0.0-10.0); %Neutrophils 92.1 % (42.0-75.0); Hemoglobin 13.5 g/dL (12.0-16.0); Mean Corpuscular HGB CONC 32.7 g/dL (32.0-36.0); Mean Corpuscular Hemoglobin 31.4 pg (27.0-31.0); Mean Corpuscular Volume 96.1 fL (78.0-98.0); Mean Platelet Volume 10.8 fL (7.4-10.4); Platelet Count 120 thou/uL (130-400); RBC Distribution Width 12.3 % (11.5-14.5); Red Blood Cell (RBC) Count 4.31 mill/uL (4.20-5.40); White Blood Cell (WBC) Count 11.3 thou/uL (4.8-10.8)
[2021-04-29 04:35] LABS: Anion Gap 15 mmol/L (10-20); BUN (Urea Nitrogen) 70 mg/dL (9.8-20.1); Calc. Creatinine Clearance 113 mL/min (70-130); Calcium 9.6 mg/dL (7.8-10.44); Carbon Dioxide 24 mmol/L (22-29); Chloride 118 mmol/L (98-107); Glucose 185 mg/dL (70-105); Magnesium 2.4 mg/dL (1.6-2.6); Potassium 5.2 mmol/L (3.5-5.1); Sodium 152 mmol/L (136-145)
[2021-04-29 04:39] LABS: ALT (SGPT) 149 U/L (8-55); AST (SGOT) 51 U/L (5-34); Albumin 3.1 g/dL (3.5-5.0); Alkaline Phosphatase 52 U/L (40-110); Bilirubin, Direct 0.3 mg/dL (0.1-0.3); Bilirubin, Total 0.7 mg/dL (0.2-1.2); Phosphorus 4.4 mg/dL (2.3-4.7); Protein, Total 6.7 g/dL (6.0-8.3)
[2021-04-29 07:30] LABS: Actual Bicarbonate (HCO3a) 21.9 mEq/L (22-28); Base Excess (BEa) -2.6 mEq/L (-2.0 to +3.0); CO2 Tension 37.2 mmHg (35.0-45.0); Calcium, Ionized (arterial) 1.26 mmol/L (1.12-1.30); Carboxyhemoglobin (COHb) 0.2 gm% (0.0-3.0); Hemoglobin (Hb) 13.5 g/dL (12.0-16.0); O2 Tension (PaO2), arterial 98.2 mmHg (> 80.0); pH, Arterial 7.39 (7.35-7.45)
[2021-04-29 07:32] LABS: Puncture Site LRA
[2021-04-29] MEDS ORDERED: GUAIFENESIN SF SOLN 200 MG/10 ML UDCUP PO PRN (08:08)
[2021-04-29] MEDS ORDERED: Bisacodyl 5 MG TAB PO PRN (08:08)
[2021-04-29] MEDS ORDERED: Artificial Tear Sol 15 ML BOT EA EYE PRN (08:08)
[2021-04-29] MEDS ORDERED: Loperamide HCl 2 MG CAP PO PRN (08:08)
[2021-04-29] MEDS ORDERED: Metoclopramide HCl 10 MG/2 ML VIAL IVP PRN (08:08)
[2021-04-29] MEDS ORDERED: Bisacodyl 10 MG SUPP PR PRN (08:08)
[2021-04-29] MEDS ORDERED: Hydrocerin (Eucerin) Cream 120 gm Jar TOP PRN (08:08)
[2021-04-29] MEDS: Dexamethasone 10 MG/ML VIAL SLOW IVP SCH (09:49)
[2021-04-29] MEDS: Senokot S 8.6-50 MG TAB PO SCH ×2 (09:49→20:15)
[2021-04-29] MEDS: FLUoxetine HCl 20 MG CAP PO SCH (09:49)
[2021-04-29] MEDS: Enoxaparin Sodium 40 MG/0.4 ML SYRINGE SC SCH ×2 (09:50→20:15)
[2021-04-29] MEDS: Polyethylene Glycol 3350 17 GM Packet PO SCH (09:50)
[2021-04-29] MEDS: Lantus 1000 UNITS/10 ML VIAL SC SCH (09:50)
[2021-04-29] MEDS: Pantoprazole 40 MG VIAL IVP SCH (09:50)
[2021-04-29] MEDS ORDERED: Fentanyl CADD 100 ML ONE (13:00)
[2021-04-29] MEDS ORDERED: Metoprolol Tartrate 25 MG TAB PER TUBE SCH (13:15)
[2021-04-29] MEDS: Insulin Regular 300 UNITS/3 ML VIAL SC PRN ×2 (16:38→22:09)
[2021-04-29] MEDS: Metoprolol Tartrate 25 MG TAB PER TUBE SCH (20:15)
[2021-04-30 04:37] LABS: #Lymphocytes 0.5 thou/uL (1.20-3.40); #Monocytes 0.3 thou/uL (0.11-0.59); #Neutrophils 8.4 thou/uL (1.40-6.50); %Basophils 0.1 % (0.0-1.0); %Lymphocytes 5.1 % (21.0-51.0); %Monocytes 3.5 % (0.0-10.0); %Neutrophils 91.2 % (42.0-75.0); Hemoglobin 12.8 g/dL (12.0-16.0); Mean Corpuscular HGB CONC 32.3 g/dL (32.0-36.0); Mean Corpuscular Hemoglobin 31.1 pg (27.0-31.0); Mean Platelet Volume 11.1 fL (7.4-10.4); Platelet Count 108 thou/uL (130-400); RBC Distribution Width 12.1 % (11.5-14.5); Red Blood Cell (RBC) Count 4.13 mill/uL (4.20-5.40); White Blood Cell (WBC) Count 9.2 thou/uL (4.8-10.8)
[2021-04-30 04:43] LABS: ALT (SGPT) 140 U/L (8-55); AST (SGOT) 49 U/L (5-34); Albumin 3.1 g/dL (3.5-5.0); Alkaline Phosphatase 49 U/L (40-110); Anion Gap 12 mmol/L (10-20); BUN (Urea Nitrogen) 57 mg/dL (9.8-20.1); Bilirubin, Total 0.6 mg/dL (0.2-1.2); Calc. Creatinine Clearance 126 mL/min (70-130); Calcium 9.4 mg/dL (7.8-10.44); Carbon Dioxide 26 mmol/L (22-29); Chloride 114 mmol/L (98-107); Globulin 3.3 g/dL (2.4-3.5); Glucose 169 mg/dL (70-105); Magnesium 2.1 mg/dL (1.6-2.6); Protein, Total 6.4 g/dL (6.0-8.3); Sodium 147 mmol/L (136-145)
[2021-04-30] MEDS ORDERED: Fentanyl CADD 100 ML ONE (07:23)
[2021-04-30 08:13] LABS: Actual Bicarbonate (HCO3a) 25.1 mEq/L (22-28); CO2 Tension 42.3 mmHg (35.0-45.0); Calcium, Ionized (arterial) 1.25 mmol/L (1.12-1.30); Carboxyhemoglobin (COHb) 0.4 gm% (0.0-3.0); Hemoglobin (Hb) 13.4 g/dL (12.0-16.0); O2 Tension (PaO2), arterial 96.1 mmHg (> 80.0); Potassium - ABG Lab 4.65 mmol/L (3.70-5.30); pH, Arterial 7.39 (7.35-7.45)
[2021-04-30 08:17] LABS: Puncture Site LBA
[2021-04-30 08:18] LABS: ALV-art Gradient 136.225 mmHg (0-20)
[2021-04-30] MEDS: Enoxaparin Sodium 40 MG/0.4 ML SYRINGE SC SCH ×2 (09:50→20:15)
[2021-04-30] MEDS: FLUoxetine HCl 20 MG CAP PO SCH (09:50)
[2021-04-30] MEDS: Metoprolol Tartrate 25 MG TAB PER TUBE SCH (09:50)
[2021-04-30] MEDS: Senokot S 8.6-50 MG TAB PO SCH ×2 (09:50→20:15)
[2021-04-30] MEDS: Dexamethasone 10 MG/ML VIAL SLOW IVP SCH (09:50)
[2021-04-30] MEDS: Lantus 1000 UNITS/10 ML VIAL SC SCH (09:51)
[2021-04-30] MEDS: Pantoprazole 40 MG VIAL IVP SCH (09:51)
[2021-04-30] MEDS: Polyethylene Glycol 3350 17 GM Packet PO SCH (09:51)
[2021-04-30] MEDS: Insulin Regular 300 UNITS/3 ML VIAL SC PRN (16:45)
[2021-05-01] MEDS: FLUoxetine HCl 20 MG CAP PO SCH ×2 (09:37→10:42)
[2021-05-01] MEDS: Metoprolol Tartrate 25 MG TAB PER TUBE SCH ×2 (09:37→10:42)
[2021-05-01] MEDS: Senokot S 8.6-50 MG TAB PO SCH ×2 (09:38→20:39)
[2021-05-01] MEDS: Lantus 1000 UNITS/10 ML VIAL SC SCH (09:38)
[2021-05-01] MEDS: Polyethylene Glycol 3350 17 GM Packet PO SCH (09:38)
[2021-05-01] MEDS: Pantoprazole 40 MG VIAL IVP SCH (09:39)
[2021-05-01] MEDS: Enoxaparin Sodium 40 MG/0.4 ML SYRINGE SC SCH ×2 (09:39→20:39)
[2021-05-01] MEDS: Famotidine 20 MG TAB PO SCH (20:39)
[2021-05-02 04:57] LABS: Anion Gap 13 mmol/L (10-20); BUN (Urea Nitrogen) 47 mg/dL (9.8-20.1); Calc. Creatinine Clearance 131 mL/min (70-130); Calcium 9.7 mg/dL (7.8-10.44); Carbon Dioxide 25 mmol/L (22-29); Chloride 119 mmol/L (98-107); Glucose 119 mg/dL (70-105); Potassium 4.1 mmol/L (3.5-5.1); Sodium 153 mmol/L (136-145)
[2021-05-02] MEDS: Enoxaparin Sodium 40 MG/0.4 ML SYRINGE SC SCH (09:34)
[2021-05-02] MEDS: Metoprolol Tartrate 25 MG TAB PER TUBE SCH (09:34)
[2021-05-02] MEDS: Famotidine 20 MG TAB PO SCH ×2 (09:35→21:13)
[2021-05-02] MEDS: Senokot S 8.6-50 MG TAB PO SCH ×2 (09:35→21:13)
[2021-05-02] MEDS: FLUoxetine HCl 20 MG CAP PO SCH (09:35)
[2021-05-02] MEDS: Polyethylene Glycol 3350 17 GM Packet PO SCH (09:35)
[2021-05-02] MEDS ORDERED: Dextrose 5 %-0.45 % NaCl 1,000 ML IV SCH (14:30)
[2021-05-02] MEDS: ALPRAZolam 0.25 MG TAB PO PRN (21:13)
[2021-05-02] MEDS: Apixaban 5 MG TAB PO SCH (21:13)
[2021-05-03 05:25] LABS: Anion Gap 19 mmol/L (10-20); BUN (Urea Nitrogen) 36 mg/dL (9.8-20.1); Calc. Creatinine Clearance 123 mL/min (70-130); Calcium 9.4 mg/dL (7.8-10.44); Carbon Dioxide 19 mmol/L (22-29); Chloride 119 mmol/L (98-107); Glucose 138 mg/dL (70-105); Potassium 4.3 mmol/L (3.5-5.1); Sodium 153 mmol/L (136-145)
[2021-05-03 07:38] LABS: Magnesium 2.2 mg/dL (1.6-2.6)
[2021-05-03] MEDS: Apixaban 5 MG TAB PO SCH ×2 (09:22→20:40)
[2021-05-03] MEDS: Senokot S 8.6-50 MG TAB PO SCH ×2 (09:22→20:40)
[2021-05-03] MEDS: FLUoxetine HCl 20 MG CAP PO SCH (09:22)
[2021-05-03] MEDS: Metoprolol Tartrate 25 MG TAB PER TUBE SCH (09:23)
[2021-05-03] MEDS: Famotidine 20 MG TAB PO SCH ×2 (09:23→20:39)
[2021-05-03] MEDS: Polyethylene Glycol 3350 17 GM Packet PO SCH (09:23)
[2021-05-03] MEDS: Amiodarone 450 MG, Admixture Fee 1 EACH in Dextrose 5% in Water 250 ML IVPB SCH ×2 (10:19→18:54)
[2021-05-03 11:05] LABS: #Eosinphils 0.6 thou/uL (0.0-0.7); #Lymphocytes 1.7 thou/uL (1.20-3.40); #Monocytes 0.9 thou/uL (0.11-0.59); #Neutrophils 12.4 thou/uL (1.40-6.50); %Basophils 0.2 % (0.0-1.0); %Eosinophils 3.7 % (0.0-10.0); %Lymphocytes 10.7 % (21.0-51.0); %Monocytes 5.5 % (0.0-10.0); %Neutrophils 79.9 % (42.0-75.0); Hemoglobin 15.4 g/dL (12.0-16.0); Mean Corpuscular HGB CONC 32.4 g/dL (32.0-36.0); Mean Corpuscular Volume 95.8 fL (78.0-98.0); Mean Platelet Volume 10.8 fL (7.4-10.4); Platelet Count 153 thou/uL (130-400); RBC Distribution Width 13.2 % (11.5-14.5); Red Blood Cell (RBC) Count 4.96 mill/uL (4.20-5.40); White Blood Cell (WBC) Count 15.5 thou/uL (4.8-10.8)
[2021-05-03] MEDS: Amiodarone 150 MG, Admixture Fee 1 EACH in Dextrose 5% in Water 100 ML IVPB SCH ×2 (11:21→13:48)
[2021-05-03 11:22] LABS: ALT (SGPT) 138 U/L (8-55); AST (SGOT) 56 U/L (5-34); Albumin 3.1 g/dL (3.5-5.0); Alkaline Phosphatase 51 U/L (40-110); Anion Gap 14 mmol/L (10-20); BUN (Urea Nitrogen) 38 mg/dL (9.8-20.1); Bilirubin, Direct 0.3 mg/dL (0.1-0.3); Calc. Creatinine Clearance 127 mL/min (70-130); Calcium 9.1 mg/dL (7.8-10.44); Carbon Dioxide 21 mmol/L (22-29); Chloride 121 mmol/L (98-107); Globulin 3.7 g/dL (2.4-3.5); Glucose 199 mg/dL (70-105); Potassium 3.9 mmol/L (3.5-5.1); Protein, Total 6.8 g/dL (6.0-8.3); Sodium 152 mmol/L (136-145)
[2021-05-03 13:28] VITALS: BMI 53.8
[2021-05-03] MEDS: ALPRAZolam 0.25 MG TAB PO PRN (20:39)
[2021-05-04] MEDS ORDERED: Metoprolol Tartrate 5 MG/5 ML VIAL IVP SCH (00:30)
[2021-05-04 04:11] LABS: Anion Gap 17 mmol/L (10-20); BUN (Urea Nitrogen) 33 mg/dL (9.8-20.1); Calc. Creatinine Clearance 128 mL/min (70-130); Carbon Dioxide 18 mmol/L (22-29); Chloride 119 mmol/L (98-107); Glucose 142 mg/dL (70-105); Potassium 4.1 mmol/L (3.5-5.1); Sodium 150 mmol/L (136-145)
[2021-05-04 04:28] LABS: Hemoglobin A1c 6.7 % (4.0-6.0)
[2021-05-04] MEDS: Amiodarone 200 MG TAB PO SCH ×2 (10:11→19:55)
[2021-05-04] MEDS: FLUoxetine HCl 20 MG CAP PO SCH (10:11)
[2021-05-04] MEDS: Apixaban 5 MG TAB PO SCH ×2 (10:11→19:55)
[2021-05-04] MEDS: Senokot S 8.6-50 MG TAB PO SCH ×2 (10:11→19:56)
[2021-05-04] MEDS: Metoprolol Tartrate 25 MG TAB PER TUBE SCH (10:11)
[2021-05-04] MEDS: Famotidine 20 MG TAB PO SCH ×2 (10:11→19:54)
[2021-05-04] MEDS: Polyethylene Glycol 3350 17 GM Packet PO SCH (10:12)
[2021-05-05] MEDS: Acetaminophen 325 MG TAB PO PRN (02:07)
[2021-05-05 04:24] LABS: Calcium 8.6 mg/dL (7.8-10.44); Chloride 116 mmol/L (98-107); Potassium 4.3 mmol/L (3.5-5.1); Sodium 144 mmol/L (136-145)
[2021-05-05 04:25] LABS: Glucose 129 mg/dL (70-105)
[2021-05-05 04:27] LABS: Anion Gap 15 mmol/L (10-20); Carbon Dioxide 17 mmol/L (22-29)
[2021-05-05 04:29] LABS: BUN (Urea Nitrogen) 33 mg/dL (9.8-20.1); Calc. Creatinine Clearance 122 mL/min (70-130)
[2021-05-05] MEDS: FLUoxetine HCl 20 MG CAP PO SCH (09:20)
[2021-05-05] MEDS: Apixaban 5 MG TAB PO SCH ×2 (09:20→20:30)
[2021-05-05] MEDS: Metoprolol Tartrate 25 MG TAB PER TUBE SCH (09:20)
[2021-05-05] MEDS: Amiodarone 200 MG TAB PO SCH ×2 (09:20→20:30)
[2021-05-05] MEDS: Famotidine 20 MG TAB PO SCH ×2 (09:20→20:30)
[2021-05-05] MEDS: Senokot S 8.6-50 MG TAB PO SCH ×2 (09:21→20:30)
[2021-05-05] MEDS: Polyethylene Glycol 3350 17 GM Packet PO SCH (09:21)
[2021-05-05] MEDS ORDERED: Nystatin Powder 15 GM BOT TOP PRN (11:21)
[2021-05-06] MEDS: Amiodarone 200 MG TAB PO SCH ×2 (09:42→21:13)
[2021-05-06] MEDS: Apixaban 5 MG TAB PO SCH ×2 (09:43→21:13)
[2021-05-06] MEDS: Famotidine 20 MG TAB PO SCH ×2 (09:43→21:13)
[2021-05-06] MEDS: Metoprolol Tartrate 25 MG TAB PER TUBE SCH (09:43)
[2021-05-06] MEDS: FLUoxetine HCl 20 MG CAP PO SCH (09:43)
[2021-05-06] MEDS: Senokot S 8.6-50 MG TAB PO SCH ×2 (10:24→21:11)
[2021-05-06] MEDS: Polyethylene Glycol 3350 17 GM Packet PO SCH (10:24)
[2021-05-07] MEDS: Amiodarone 200 MG TAB PO SCH (09:25)
[2021-05-07] MEDS: Apixaban 5 MG TAB PO SCH (09:25)
[2021-05-07] MEDS: Famotidine 20 MG TAB PO SCH (09:26)
[2021-05-07] MEDS: Polyethylene Glycol 3350 17 GM Packet PO SCH (09:27)
[2021-05-07] MEDS: Metoprolol Tartrate 25 MG TAB PER TUBE SCH (09:27)
[2021-05-07] MEDS: FLUoxetine HCl 20 MG CAP PO SCH (09:27)
[2021-05-07] MEDS: Senokot S 8.6-50 MG TAB PO SCH (09:27)
[2021-05-07 15:31] VITALS: BP 132/74; TEMP 98.4
[2021-05-14] MEDS ORDERED: Amiodarone 200 MG TAB PO SCH (09:00)
== END 2021-05-07 16:15 | DRG 870 ==
LOC: ERS 11:10 → ERHOLD 14:05 → T4-B 19:58 → CCU 04-14 22:29 → 2NO 05-02 18:15
PROVIDERS: ADMIT Internal Medicine; ATTEND Internal Medicine
PROC: XW033E5 Introduction of Remdesivir Anti-infective into Peripheral Vein, Percutaneous Approach, New Technology Group 5 (ICD-10-PCS; 2021-04-12)
PROC: 8E0ZXY6 Isolation (ICD-10-PCS; 2021-04-12)
PROC: 5A09357 Assistance with Respiratory Ventilation, Less than 24 Consecutive Hours, Continuous Positive Airway Pressure (ICD-10-PCS; 2021-04-14)
PROC: 5A1945Z Respiratory Ventilation, 24-96 Consecutive Hours (ICD-10-PCS; principal; 2021-04-15)
PROC: 0BH17EZ Insertion of Endotracheal Airway into Trachea, Via Natural or Artificial Opening (ICD-10-PCS; 2021-04-15)
PROC: 5A1955Z Respiratory Ventilation, Greater than 96 Consecutive Hours (ICD-10-PCS; 2021-04-20)
PROC: 0BH17EZ Insertion of Endotracheal Airway into Trachea, Via Natural or Artificial Opening (ICD-10-PCS; 2021-04-20)
DX: A41.89 Other specified sepsis (principal); U07.1 COVID-19; J12.82 Pneumonia due to coronavirus disease 2019; J80 Acute respiratory distress syndrome; N17.9 Acute kidney failure, unspecified; Z68.43 Body mass index [BMI] 50.0-59.9, adult; E87.0 Hyperosmolality and hypernatremia; I48.92 Unspecified atrial flutter; G72.81 Critical illness myopathy; R65.20 Severe sepsis without septic shock; F40.240 Claustrophobia; E86.0 Dehydration; F41.1 Generalized anxiety disorder; F32.9 Major depressive disorder, single episode, unspecified; E66.01 Morbid (severe) obesity due to excess calories; R79.89 Other specified abnormal findings of blood chemistry; J98.2 Interstitial emphysema; I48.0 Paroxysmal atrial fibrillation; R21 Rash and other nonspecific skin eruption; Z88.8 Allergy status to other drugs, medicaments and biological substances; Z79.899 Other long term (current) drug therapy; Z98.890 Other specified postprocedural states
CPT/HCPCS: 36415; 36416; 36600; 71045; 71275; 74230; 80048; 80053; 80076; 82728; 82805; 83036; 83735; 83880; 84100; 84443; 84484; 85025; 85379; 86140; 87070; 87205; 93005; 93010; 93306; 94002; 94003; 94660; 96374; C9113; J0282; J0360; J0456; J0696; J1100; J1450; J1644; J1650; J1815; J1940; J2060; J2270; J2704; J3010; J3490; J7042; J7050; J7070; Q0162; Q9967; S0028